=== PATIENT | female | born 1980 | race African-American/Black ===

== ENCOUNTER 2022-04-12 19:26 | Emergency (ER) | payer BC, SELFPAY ==
[2022-04-12 19:27] VITALS: BP 159/100; PULSE 95; RESP 16; TEMP 36.9; O2SAT 99; BMI 26.6
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
[2022-04-12 19:47] LABS: Urine Pregnancy, HCG Qual. Negative (Negative)
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
[2022-04-12 21:00] VITALS: BP 127/94; PULSE 69; RESP 14; O2SAT 97
[2022-04-12 21:30] VITALS: BP 132/83; PULSE 81; RESP 14; O2SAT 97
[2022-04-12 21:42] VITALS: BP 132/83; PULSE 72; RESP 16; TEMP 36.6; O2SAT 100
== END 2022-04-12 21:51 | disposition home or self-care (01) ==
PROVIDERS: Emergency Provider Emergency Medicine
DX: S16.1XXA Strain of muscle, fascia and tendon at neck level, initial encounter (principal); S13.4XXA Sprain of ligaments of cervical spine, initial encounter; M25.512 Pain in left shoulder; M79.602 Pain in left arm; M54.9 Dorsalgia, unspecified; Z79.1 Long term (current) use of non-steroidal anti-inflammatories (NSAID); Z79.899 Other long term (current) drug therapy; V49.40XA Driver injured in collision with unspecified motor vehicles in traffic accident, initial encounter; Y92.410 Unspecified street and highway as the place of occurrence of the external cause
CPT/HCPCS: 71046; 72125; 72128; 72131; 72170; 81025; 96372; 99285